=== PATIENT | female | born 1955 | race African-American/Black ===

== ENCOUNTER → 2017-09-27 | Outpatient (CLI) | payer MEDICARE, MEDICAID ==
[~2017-09-27] MED LIST: BARIUM SULFATE 450ML ORAL SUSP ONE; DIATR MEGLU/DIATRIZOATE SOLN 120ML ONE
== END | disposition home or self-care (01) ==
LOC: CT 07:53
PROVIDERS: ATTEND Surgery
DX: R10.9 Unspecified abdominal pain (principal)
CPT/HCPCS: 74176; Q9963